=== PATIENT | male | born 1985 | race Caucasian/White ===

== ENCOUNTER → 2019-09-08 18:24 | Outpatient (BNVA) | payer SELFPAY | PROVIDERS: Visit Provider Nurse Practitioner | DX: J02.9 Acute pharyngitis, unspecified (principal) | CPT/HCPCS: 87081; 87880 ==

== ENCOUNTER 2021-05-02 13:26 | Emergency (ER) | payer SELFPAY ==
[2021-05-02 13:44] VITALS: BP 147/78; PULSE 65; RESP 16; TEMP 36.9; O2SAT 97
--- NOTE | 2021-05-02 15:32 | ED_ITS ---
HPI - Abdominal Pain General: Chief Complaint: Abdominal Pain Stated Complaint: Upper Abdominal Pain Time Seen by Provider: 05/02/21 14:45 History of Present Illness: HPI narrative: 35 yo male presents emergency room with 3 days of abdominal pain and cramping. He has a lot of nausea no vomiting no diarrhea no hematochezia melena hematemesis coffee-ground emesis. Denies dysuria urgency or frequency. Is not really taking anything for it it does not significantly makes it worse. He denies any acholic stools. MD elicited complaint: abdominal pain Onset (ago): minute(s) Pain Consistency: intermittent Location: Epigastric and RUQ Quality: cramping Radiation: none Migration to: no migration Exacerbating factors: eating Relieving factors: nothing Associated Symptoms: Reports bloating; Denies anorexia, belching, change in bowel habits, change in stool character, chills, coffee ground emesis, constipation, GI cramping, diarrhea, dyspepsia, dysuria, excessive flatus, fever(s), heartburn, hematochezia, hematuria, hematemesis, fecal incontinence, loose stools, melena, nausea, poor appetite, syncope and vomiting Review of Systems Const: Denies: fever(s) or chills ENMT: Denies: throat pain, ear or mastoid pain, nasal discharge or nasal congestion Card: Denies: syncope Resp: Denies: dyspnea, productive cough or non-productive cough GI: Reports: bloating; Denies: nausea, vomiting, hematemesis, coffee ground emesis, heartburn, diarrhea, constipation, GI cramping, belching, excessive flatus, fecal incontinence, change in bowel habits, change in stool character, hematochezia or melena : Denies: dysuria or hematuria Skin/Breast: Denies: rash or pruritus PFSH ED PFSH: Social History Smoking and tobacco status: never smoked Physical Exam Const: COMMON NORMALS: no acute distress GENERAL APPEARANCE: cooperative and comfortable ORIENTATION/CONSCIOUSNESS: Yes awake, Yes oriented to person, Yes oriented to place and Yes oriented to time HENMT: COMMON NORMALS: normocephalic, atraumatic and hearing grossly normal bilaterally HEAD & SCALP: normocephalic and atraumatic Neck/C-Spine: COMMON NORMALS: no JVD Resp: COMMON NORMALS: normal respiratory effort, No retractions, No use of accessory muscles and clear to auscultation bilaterally AUSCULTATION: clear to auscultation bilaterally Cardio: COMMON NORMALS: no JVD, regular rate, regular rhythm and No murmurs present (Cardio) RATE: regular rate RHYTHM: regular rhythm GI: COMMON NORMALS: Soft to palpation and No hepatosplenomegaly present AUSCULTATION: Yes normoactive bowel sounds PALPATION: Yes Soft to palpation, No Tenderness to palpation present (GI), No Guarding due to palpation present (GI) and Yes No hepatosplenomegaly present Extremity: COMMON NORMALS: normal to inspection, capillary refill normal, no clubbing, cyanosis or edema, no calf tenderness and no pedal edema Neuro: SENSORIUM/ORIENTATION: Yes oriented to person, Yes oriented to place an d Yes oriented to time Skin: COMMON NORMALS: no rashes or lesions noted GENERAL SKIN EXAM: no r ashes or lesions noted Course Vital Signs: Vital signs: Vital Signs Temperature 98.4 F 05/02/21 13:44 Pulse Rate 66 05/02/21 16:11 Respiratory Rate 19 H 05/02/21 16:11 Blood Pressure 118/83 05/02/21 16:11 Pulse Oximetry 98 05/02/21 16:11 MDM - Abdominal Pain MDM Narrative: Medical decision making narrative: Reviewed labs and imaging w ith patient he is feeling better will start on Protonix at 40 daily. Clear liquid diet and then advance as tolerated discussed certain foods to avoid that are likely to exacerbate return if is worsening symptoms Lab Data: Labs: Lab Results 05/02/21 05/02/21 05/02/21 15:31 15:39 15:39 WBC 8.9 10^3/uL 10^3/ uL (4.0-10.0) RBC 5.44 10^6/uL H 10 ^6/uL (4.1-5.3) Hgb 16.9 g/dL H g/dL (11.7-16.6) Hct 52.3 % H % (42.0-52.0) MCV 96.1 fl H fl (80-94) MCH 31.1 pg pg (28.0-34.0) MCHC 32.3 g/dL g/dL (30.0-36.0) RDW 12.2 % % (12.1-15.1) Plt Count 201 10^3/cmm 10^3 /cmm (130-400) MPV 11.8 fL H fL (7.4-10.4) Neut % (Auto) 65.1 % % Lymph % (Auto) 23.1 % % Bartholomew % (Auto) 9.8 % % Eos % (Auto) 0.9 % % Baso % (Auto) 0.8 % % Neut # (Auto) 5.79 10^3/uL 10^3 /uL (1.8-7.7) Lymph # (Auto) 2.1 10^3/uL 10^3/ uL (0.8-4.8) Bartholomew # (Auto) 0.9 10^3/uL 10^3/ uL (0.2-0.9) Eos # (Auto) 0.1 10^3/uL 10^3/ uL (0.0-0.8) Baso # (Auto) 0.1 10^3/uL 10^3/ uL (0.0-0.1) Nucleated RBC % (a uto) 0 % % Nucleated RBCs # 0.0 /100WBC /100W BC Sodium 141 mmol/L mmol/L (136-145) Potassium 4.0 mmol/L mmol/L (3.5-5.1) Chloride 105 mmol/L mmol/L (98-107) Carbon Dioxide 25 mmol/L mmol/L (22-29) Anion Gap 15.0 (5-19) BUN 14 mg/dL mg/dL (6-20) Creatinine 0.8 mg/dL mg/dL (0.7-1.2) GFR Calculation 109.4 mL/min mL/m in (90-130) Glucose 78 mg/dL mg/dL (65-115) Calculated Osmolal ity 291 mOsm/kg mOsm/ kg (285-295) Calcium 9.1 mg/dL mg/dL (8.5-10.5) Total Bilirubin 0.3 mg/dL mg/dL (0.15-1.2) AST 23 U/L U/L (0-40) ALT 20 U/L U/L (0-41) Alkaline Phosphata se 69 IU/L IU/L (40-130) Total Protein 7.0 g/dL g/dL (6.6-8.7) Albumin 4.6 g/dL g/dL (3.5-5.2) Globulin 2.4 g/dL g/dL (1.3-4.6) Lipase 27 U/L U/L (13-60) Urine Color Yellow (Yellow) Urine Appearance Hazy A (CLEAR) Urine pH 8 H (5-7) Ur Specific Gravit y 1.015 (1.005-1.030) Urine Protein Neg (Negative) Urine Glucose (UA) Norm (Normal) Urine Ketones Negative (Negative) Urine Blood Neg (Negative) Urine Nitrate Negative (Negative) Urine Bilirubin Neg (Negative) Urine Urobilinogen 1 mg/dL H mg/dL (Negative) Ur Leukocyte Hemalatha ase Negative (Negative) Urine RBC None /hpf /hpf (0-2) Urine WBC None /hpf /hpf (0-5) Ur Squamous Epith Cells None /hpf /hpf (0-5) Amorphous Sediment 2+ /hpf /hpf Urine Bacteria 1+ /hpf H /hpf (NONE) Discharge Plan Discharge Patient Disposition: Home Clinical Impression: Gastroesophageal reflux disease Condition: Stable Prescriptions: New Protonix 40 mg tablet,delayed release (DR/EC) 40 mg PO DAILY 56 Days Qty: 60 RF: 0 No Action Amino Acid Complex Tablet 1 tab PO TID PRN (Reason: unknown) RF: 0 Discharge Orders: Discharge ED (Routine); Ordered 05/02/21 Ordered By: Adair Culver Discharge Diet: Clear Liquid Discharge Activity: Increase activity as tolerated Patient Instructions: Opioid Safety Activity Restrictions/Additional Instructions: Start Protonix once daily clear liquid diet for 24 to 48 hours and advance as tolerated recurrence of symptoms follow-up with primary care. Worsening symptoms return emergency room Coding Level of Care Code ED Raw Cheese Worker for Kamila Fwd Exam Comprehensive
[2021-05-02 15:41] VITALS: BP 144/97; PULSE 58; RESP 18; O2SAT 99
[2021-05-02] MEDS: lidocaine 2% viscous 15 ML, aluminum-mag hydrox-simethicon 30 ML, sucralfate oral liq 1 GM PO (15:44)
[2021-05-02 16:11] VITALS: BP 118/83; PULSE 66; RESP 19; O2SAT 98
[2021-05-02] MEDS: sodium chloride 0.9% 1,000 ML 999 ML IV (16:11)
[2021-05-02 16:21] LABS: Basophils # 0.1 10^3/uL (0.0-0.1); Basophils % 0.8 %; Eosinophils # 0.1 10^3/uL (0.0-0.8); Eosinophils % 0.9 %; Hematocrit 52.3 % (42.0-52.0); Hemoglobin 16.9 g/dL (11.7-16.6); Lymphocytes # 2.1 10^3/uL (0.8-4.8); Lymphocytes % 23.1 %; Mean Corpuscular HGB Conc 32.3 g/dL (30.0-36.0); Mean Corpuscular Hemoglobin 31.1 pg (28.0-34.0); Mean Corpuscular Volume 96.1 fl (80-94); Mean Platelet Volume 11.8 fL (7.4-10.4); Monocytes # 0.9 10^3/uL (0.2-0.9); Monocytes % 9.8 %; Neutrophils # 5.79 10^3/uL (1.8-7.7); Neutrophils % 65.1 %; Nucleated Red Blood Cells % 0 %; Platelet Count 201 10^3/cmm (130-400); Red Blood Count 5.44 10^6/uL (4.1-5.3); Red Cell Distribution Width 12.2 % (12.1-15.1); White Blood Count 8.9 10^3/uL (4.0-10.0)
[2021-05-02 16:27] LABS: Add Urine Microscopic? YES; Bilirubin Urine Neg (Negative); Blood Urine Neg (Negative); Glucose Urine UA Norm (Normal); Ketones Urine Negative (Negative); Leukocyte Esterase Urine Negative (Negative); Nitrate Urine Negative (Negative); Protein Urine Neg (Negative); Specific Gravity, Urine 1.015 (1.005-1.030); Urine Appearance Hazy (CLEAR); Urine Color Yellow (Yellow); Urobilinogen Urine 1 mg/dL (Negative); pH Urine 8 (5-7)
[2021-05-02 16:35] LABS: Add Urine Culture? No; Amorphous Sediment Urine 2+ /hpf; Bacteria Urine 1+ /hpf
[2021-05-02 16:52] LABS: Alanine Aminotransferase 20 U/L (0-41); Albumin Level 4.6 g/dL (3.5-5.2); Alkaline Phosphatase 69 IU/L (40-130); Aspartate Amino Transferase 23 U/L (0-40); Blood Urea Nitrogen 14 mg/dL (6-20); Calcium 9.1 mg/dL (8.5-10.5); Carbon Dioxide 25 mmol/L (22-29); Chloride 105 mmol/L (98-107); Globulin 2.4 g/dL (1.3-4.6); Glomerular Filtration Rate 109.4 mL/min (90-130); Glucose 78 mg/dL (65-115); Lipase 27 U/L (13-60); Osmolality Calculated 291 mOsm/kg (285-295); Sodium 141 mmol/L (136-145); Total Bilirubin 0.3 mg/dL (0.15-1.2)
== END 2021-05-02 18:05 | disposition home or self-care (01) ==
PROVIDERS: Physician Assistant; Emergency Provider Family Medicine
DX: K21.9 Gastro-esophageal reflux disease without esophagitis (principal)
CPT/HCPCS: 80053; 81001; 83690; 85025; 96360; 99284; J7030

== ENCOUNTER 2024-01-29 10:47 | Emergency (ER) | payer SELFPAY ==
[2024-01-29 10:51] VITALS: BP 142/80; PULSE 84; RESP 18; TEMP 37.1; O2SAT 95; BMI 24.3
--- NOTE | 2024-01-29 11:01 | US_ITS ---
WS: [id number] Scrotal and testicular ultrasound, 01/29/2024 Clinical Data: testicle pain Comparison: Testicular ultrasound, 02/25/2018 Findings: The right testes measures 4.4 cm x 3.7 cm x 2.6 cm. The right epididymis measures 1.1 x 1.6 x 1.7 cm. There is minimal increased blood flow to the epididymis. There is increased blood flow to the right testis. There are spermatic cord varicosities which have been present before. The left testes measures 4.3 cm x 3.1 cm x 2.3 cm. The left epididymis measures 0.9 x 0.9 x 1.7 cm. B oth the left epididymis and left testis show normal blood flow. There is no evidence of torsion. No masses or abnormal calcifications are noted. The testes are intact with no evidence of laceration or hematoma. US/US scrotum [id number] Impression: Possible right epididymitis and right orchitis.
--- NOTE | 2024-01-29 11:01 | XR_ITS ---
WS: [id number] Left shoulder, 3 views, 01/29/2024 Clinical Data: injury Comparison: None. Findings: No fractures or dislocations are seen. The AC joint is normal. The adjacent left clavicle, left scapu la and ribs are normal. The soft tissues are unremarkable. XR/XR shoulder LT min 2V* [id number] Impression: Negative left shoulder.
[2024-01-29 13:00] VITALS: BP 143/100; PULSE 74
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
[2024-01-29 13:30] VITALS: BP 134/84; PULSE 67; O2SAT 98
[2024-01-29 13:49] VITALS: BP 137/86; PULSE 68; O2SAT 97
[2024-01-29 14:17] LABS: Bilirubin Urine Neg (Negative); Blood Urine 3+ (Negative); Glucose Urine UA Norm (Normal); Ketones Urine 3+ (Negative); Nitrate Urine Negative (Negative); Protein Urine Trace (Negative); Specific Gravity, Urine 1.015 (1.005-1.030); Urine Appearance Slightly Cloudy (CLEAR); Urine Color Yellow (Yellow); Urobilinogen Urine 1 mg/dL (Negative); pH Urine 6.5 (5-7)
[2024-01-29 14:18] LABS: Add Urine Microscopic? YES; Bacteria Urine TRACE /hpf; Fine Granular Casts Urine 0-4 /lpf; Leukocyte Esterase Urine Negative (Negative); Mucus Urine 3+ /hpf; RBC Urine 40-50 /hpf (0-2); Squamous Epithelial Cell Urine 0-4 /hpf (0-5); WBC Urine 0-4 /hpf (0-5)
[2024-01-29 14:19] LABS: Add Urine Culture? Yes
== END 2024-01-29 13:49 | disposition home or self-care (01) ==
PROVIDERS: Emergency Medicine; Emergency Provider Family Medicine
DX: N45.1 Epididymitis (principal); N34.2 Other urethritis
CPT/HCPCS: 73030; 76870; 81001; 87086; 99284

== ENCOUNTER 2024-01-30 18:41 | Emergency (ER) | payer SELFPAY ==
[2024-01-30 18:43] VITALS: BP 150/79; PULSE 82; RESP 14; TEMP 36.7; O2SAT 99
--- NOTE | 2024-01-30 19:06 | USR_ITS ---
PROCEDURE INFORMATION: Exam: US Scrotum Exam date and time: 01/30/2024 7:24 PM Age: 38 years old Clinical indication: Scrotum pain; Patient HX: No history of vasectomy, no trauma. ; Additional info: Worsening right testicular swelling TECHNIQUE: Imaging protocol: Real-time ultrasound of the scrotum and contents with color Doppler and image documentation. COMPARISON: US scrotum [id number] 01/29/2024 11:07 AM FINDINGS: Right epididymis is mildly enlarged, heterogeneous with increased vascularity consistent with acute epididymitis. Right testicle is unremarkable in overall size and contour. There is diffuse increased vascularity throughout the right testicle that appears slightly progressed from previous exam and consistent with acute orchitis. Small right-sided varicocele redemonstrated. No significant hydrocele. Left testicle is unremarkable in overall size and contour measuring 4.3 x 2.3 x 3.3 cm. Left epididymis is unremarkable. No significant hydrocele or varicocele. US/US scrotum [id number] IMPRESSION: Findings consistent with acute right epididymitis/orchitis that appears to slightly progressed from prior study.
--- NOTE | 2024-01-30 19:24 | PC.NURSE ---
Pt was placed in a gown and awaiting US
--- NOTE | 2024-01-30 19:59 | W.ED.MALEGU ---
HPI - Male Genitourinary General: Chief complaint: Urogenital-Male Stated complaint: swollen groin Time Seen by Provider: 01/30/24 19:01 History of Present Illness: 38-year-old man who presents emergency room with worsening right testicular/scrotal swelling. He was here yesterday and was diagnosed with epididymitis and orchitis. He was placed on doxycycline and sent home. He says the swelling has become worse and the pain is a bit worse so he came back to the emergency room. Still no fevers. No dysuria. Review of Systems Narrative: Constitutional symptoms: Negative except as documented in HPI. Skin symptoms: Negative except as documented in HPI. Eye symptoms: Negative except as documented in HPI. ENMT symptoms: Negative except as documented in HPI. Respiratory symptoms: Negative except as documented in HPI. Cardiovascular symptoms: Negative except as documented in HPI. Gastrointestinal symptoms: Negative except as documented in HPI. Genitourinary symptoms: Negative except as documented in HPI. Musculoskeletal symptoms: Negative except as documented in HPI. Neurologic symptoms: Negative except as documented in HPI. Psychiatric symptoms: Negative except as documented in HPI. Endocrine symptoms: Negative except as documented in HPI. PFSH ED PFSH: Social History Smoking and tobacco/nicotine status: never used tobacco/nicotine Physical Exam Narrative: EXAM NARRATIVE: General: Alert, no acute distress. Skin: warm and dry Head: Normocephalic Neck: Trachea midline Eye: Extraocular movements are intact. Ears, nose, mouth and throat: Oral mucosa moist Respiratory: Respirations are non-labored Musculoskeletal: Normal ROM Genitourinary: Right testicle does appear significantly swollen. I do not have a comparison from yesterday so I am going to ultrasound and have the studies compared. Neurological: Alert and oriented, No focal neurological deficit observed. Psychiatric: Cooperative, appropriate mood & affect. Course Vital Signs: Vital signs: Vital Signs Temperature 98.1 F 01/30/24 18:43 Pulse Rate 82 01/30/24 18:43 Respiratory Rate 14 01/30/24 18:43 Blood Pressure 150/79 01/30/24 18:43 Pulse Oximetry 99 01/30/24 18:43 Oxygen Delivery Me thod Room Air 01/30/24 18:43 MDM - Male Medical Decision Making Ultrasound of the scrotum was ordered again to compare size changes from yesterday. To look for any worsening symptoms or even a possible torsion. Ultrasound of the scrotum: Acute right epididymitis/orchitis that appears to be slightly progressed from yesterday. This was reviewed and interpreted by myself the emergency room physician. I also reviewed the radiology report. Consultation: I spoke with Dr. Waller, urologist in [place]. He agrees with 2 weeks of antibiotic therapy and a dose of Rocephin here. He advised to tell the patient that this can be a very difficult illness and sometimes may end up in surgery but often does not even with a very terrible exam. He will see the patient in clinic in about a week or so. I reviewed the patient's medical record. Reexamination: Patient remains in no acute distress. No increased work of breathing. No altered mental status. He says his pain is still present. Assessment and plan: Epididymitis Orchitis ? IM Rocephin and IM Toradol. - Discharged home - Discussed plan with patient. Answered any questions. - Evaluation and treatment of this problem were appropriate in the emergency setting. Lab Data Radiology Impressions Scrotum Ultrasound 01/30/24 19:06 IMPRESSION: Findings consistent with acute right epididymitis/orchitis that appears to slightly progressed from prior study. All radiology interpretation(s) finalized by discharge Discharge Plan Discharge Patient Disposition: Home Clinical Impression: Epididymitis, right Condition: Stable Prescriptions: New hydrocodone-acetaminophen 5-325 mg tablet 1 tab PO Q6H PRN (Reason: pain) Qty: 20 0RF Miralax 17 gram/dose powder 17 g PO DAILY Qty: 510 0RF Rx Instructions: Take 1 scoop daily while taking pain medications. No Action metronidazole 500 mg tablet 2,000 mg PO ONCE Qty: 4 0RF Amino Acid Complex Tablet 1 tab PO TID PRN (Reason: unknown) doxycycline hyclate 100 mg capsule 100 mg PO BID 14 Days Qty: 28 0RF diclofenac sodium 75 mg tablet,delayed release (DR/EC) 75 mg PO Q12H PRN (Reason: pain) Qty: 20 0RF Discharge Orders: Discharge ED (Routine); Ordered 01/30/24 Ordered By: Cindy Maldonado Referrals: Geoff Waller MD [Referring] - 4-7 days (Please call for an appointment) Patient Instructions: Opioid Safety, Pain Management Activity Restrictions/Additional Instructions: Thank you for choosing [facility] for your healthcare needs today. Please realize this is an emergency room and that we are providing you with a medical screening exam and this may not be complete and all inclusive of all the testing and or work up that you may need to determine your ailment or severity of your illness. You have been screened and evaluated and felt safe for discharge. Health conditions do change or evolve sometimes and as such it is important that you follow up with your Primary Doctor to be re checked, 3-5 days is a general good time frame for follow up. You are always welcome to return to the ED for re assessment if your symptoms are worsening or you have new concerns Coding Level of Care Code ED Government Affairs Director for Kamila Farrar
[2024-01-30] MEDS: cefTRIAXone 1,000 MG in water for injection-sterile 2.1 ML 1 MG IM (21:01)
[2024-01-30] MEDS: ketorolac 60 mg/2 mL INJ IM (21:01)
[2024-01-30 21:03] VITALS: BP 142/76; PULSE 81; RESP 18; O2SAT 100
== END 2024-01-30 21:03 | disposition home or self-care (01) ==
PROVIDERS: Emergency Provider Emergency Medicine
DX: N45.1 Epididymitis (principal)
CPT/HCPCS: 76870; 96372; 99284; J0696; J1885